=== PATIENT | male | born 1945 | race African-American/Black ===

== ENCOUNTER 2019-01-24 14:15 | Emergency (ER) | payer MEDICARE, MEDICAID ==
[~2019-01-24] VITALS: Ht 177.8 cm; Wt 73.0 kg
[~2019-01-24 14:15] MED LIST: FERR-43 PO
[2019-01-24] MEDS ORDERED: SODIUM CHLORIDE 0.9% 1,000 ML IV ONE ×2 (14:51→17:16)
[2019-01-24 16:00] VITALS: BP 147/73
[2019-01-24 16:05] LABS: BASOPHILS % 0.1 % (0.0-2.0); EOSINOPHILS % 0.3 % (0.0-5.0); HEMATOCRIT. 26.3 % (42.0-52.0); HEMOGLOBIN. 8.8 g/dL (14.0-18.0); LYMPHOCYTES % 12.9 % (20.0-50.0); MEAN CORPUSCULAR HEMOGLOBIN 29.7 pg (28.0-32.0); MEAN CORPUSCULAR VOLUME 89.2 fL (80.0-94.0); MEAN PLATELET VOLUME 7.4 fl (7.4-10.4); MONOCYTES % 11.6 % (2.0-8.0); NEUTROPHILS % 75.1 % (40.0-76.0); PLATELET 312 x1000/uL (130-400); RED BLOOD CELL COUNT 2.96 mill/uL (4.7-6.1); RED CELL DISTRIBUTION WIDTH 18.5 % (11.6-14.6)
[2019-01-24 16:12] LABS: CHLORIDE 100 mEq/L (98-107)
== END 2019-01-24 18:07 | disposition left against medical advice (07) ==
LOC: ER 14:15
DX: R55 Syncope and collapse (principal); E11.65 Type 2 diabetes mellitus with hyperglycemia
CPT/HCPCS: 36415; 71045; 80053; 83880; 84484; 85025; 93005; 96360; 96361; 99284; J7030

== ENCOUNTER 2019-02-18 09:04 | Emergency (ER) | payer MEDICARE, MEDICAID ==
[~2019-02-18] VITALS: Ht 172.7 cm; Wt 68.0 kg
[2019-02-18] MEDS ORDERED: SODIUM CHLORIDE 0.9% 1,000 ML IV ONE (09:55)
[2019-02-18] MEDS ORDERED: FAMOTIDINE 20MG/2ML VIAL IV STA (09:55)
[2019-02-18 11:09] LABS: BASOPHILS % 0.2 % (0.0-2.0); CHLORIDE 97 mEq/L (98-107); HEMATOCRIT. 24.4 % (42.0-52.0); HEMOGLOBIN. 8.2 g/dL (14.0-18.0); LYMPHOCYTES % 10.5 % (20.0-50.0); MEAN CORPUSCULAR VOLUME 86.8 fL (80.0-94.0); MEAN PLATELET VOLUME 7.1 fl (7.4-10.4); NEUTROPHILS % 80.3 % (40.0-76.0); PLATELET 250 x1000/uL (130-400); RED BLOOD CELL COUNT 2.81 mill/uL (4.7-6.1); RED CELL DISTRIBUTION WIDTH 19.6 % (11.6-14.6)
[2019-02-18 11:10] LABS: INR 1.1; PROTHROMBIN TIME 11.2 sec (9.6-11.0)
[2019-02-18 11:25] VITALS: BP 124/71
== END 2019-02-18 11:33 | disposition left against medical advice (07) ==
LOC: ER 09:04
DX: R10.9 Unspecified abdominal pain (principal); E11.9 Type 2 diabetes mellitus without complications; Z79.899 Other long term (current) drug therapy
CPT/HCPCS: 36415; 74176; 80053; 83690; 85025; 85610; 96374; 99284; J3490; J7030

== ENCOUNTER 2019-04-22 04:15 | Inpatient (IN) | payer MEDICARE, MEDICAID ==
[~2019-04-22] VITALS: Ht 172.7 cm; Wt 60.8 kg
[2019-04-22] VITALS (30 sets, daily range): BP systolic 117–165; BP diastolic 56–94
[2019-04-22] MEDS ORDERED: SODIUM CHLORIDE 0.9% 1,000 ML IV ONE (06:45)
[2019-04-22] MEDS ORDERED: MORPHINE SULFATE 4 MG/ML CPJ (NOT FOR IM USE) IV STA (06:45)
[2019-04-22] MEDS ORDERED: ONDANSETRON HCL 4MG/2ML INJ IV STA (06:45)
[2019-04-22 07:12] LABS: BASOPHILS % 0.3 % (0.0-2.0); EOSINOPHILS % 0.3 % (0.0-5.0); HEMATOCRIT. 23.3 % (42.0-52.0); HEMOGLOBIN. 7.6 g/dL (14.0-18.0); LYMPHOCYTES % 16.2 % (20.0-50.0); MEAN CORPUSCULAR HEMOGLOBIN 28.9 pg (28.0-32.0); MONOCYTES % 9.5 % (2.0-8.0); NEUTROPHILS % 73.7 % (40.0-76.0); PLATELET 250 x1000/uL (130-400); RED BLOOD CELL COUNT 2.62 mill/uL (4.7-6.1)
[2019-04-22 07:13] LABS: CLARITY URINE CLEAR (CLEAR); COLOR URINE YELLOW (YELLOW); KETONES URINE NEGATIVE (NEGATIVE); LEUKOCYTE ESTERASE URINE NEGATIVE (NEGATIVE); NITRITE URINE NEGATIVE (NEGATIVE); OCCULT BLOOD URINE NEGATIVE (NEGATIVE); PH URINE 5.5 (4.5-8.0); PROTEIN URINE 1+ (NEGATIVE)
[2019-04-22 07:16] LABS: CHLORIDE 102 mEq/L (98-107)
[2019-04-22] MEDS ORDERED: SODIUM CHLORIDE 0.9% 1,000 ML IV SCH (09:16)
[2019-04-22] MEDS ORDERED: IPRATROPIUM/ALBUTEROL 0.5-3(2.5)MG/3ML NEB HHN PRN (09:30)
[2019-04-22] MEDS ORDERED: MORPHINE SULFATE 2 MG/ML CPJ (NOT FOR IM USE) IV PRN (09:30)
[2019-04-22] MEDS ORDERED: MAGNESIUM/ALUMINUM HYDROXIDE/SIMETHICONE 30ML UDC PO PRN (09:30)
[2019-04-22] MEDS ORDERED: DOCUSATE SODIUM 100MG CAPSULE PO PRN (09:30)
[2019-04-22 09:33] LABS: PHOSPHORUS 2.9 mg/dL (2.5-4.9)
[2019-04-22] MEDS ORDERED: LORAZEPAM 2MG/ML CPJ ONE (11:08)
[2019-04-22] MEDS ORDERED: SENNOSIDES 8.6MG TABLET PO PRN (11:15)
[2019-04-22] MEDS ORDERED: BISACODYL 5MG TABLET PO PRN (11:15)
[2019-04-22] MEDS ORDERED: SORBITOL 70% SOLN 30ML PO PRN (11:15)
[2019-04-22] MEDS ORDERED: POTASSIUM CHLORIDE 20MEQ TABLET SR PO NR (15:00)
[2019-04-22] MEDS: ACETAMINOPHEN 325MG TABLET PO PRN (15:04)
[2019-04-22] MEDS ORDERED: MAGNESIUM 2 G PREMIX 50 ML IV NR (16:00)
[2019-04-22] MEDS: CLONIDINE 0.1MG TABLET PO PRN (17:56)
[2019-04-22] MEDS ORDERED: DEXTROSE 50% WATER 50ML SYRINGE IV PRN (18:15)
[2019-04-22] MEDS ORDERED: NICARDIPINE 100 MG in SODIUM CHLORIDE 0.9% 60 ML IV PRN (18:45)
[2019-04-22] MEDS: DEXT 5%/LACTATED RINGERS 1,000 ML IV SCH (19:21)
[2019-04-22] MEDS: BLOOD SUGAR DIAGNOSTIC STRIP TEST SCH (21:00)
[2019-04-22] MEDS: LEVETIRACETAM 500 MG in SODIUM CHLORIDE 0.9% 100 ML IV SCH (21:07)
[2019-04-22] MEDS: INSULIN LISPRO 100 UNITS/ML SUBCUT SCH (21:08)
[2019-04-22] MEDS: DEXAMETHASONE 4MG/ML 1ML VIAL IV SCH (23:20)
[2019-04-23] VITALS (57 sets, daily range): BP systolic 113–167; BP diastolic 30–101
[2019-04-23] MEDS: DEXAMETHASONE 4MG/ML 1ML VIAL IV SCH ×3 (05:23→17:26)
[2019-04-23 05:37] LABS: INR 1.1; PROTHROMBIN TIME 11.7 sec (9.6-11.0)
[2019-04-23 05:40] LABS: BASOPHILS % 0.1 % (0.0-2.0); LYMPHOCYTES % 9.8 % (20.0-50.0); MEAN CORPUSCULAR HEMOGLOBIN 29.1 pg (28.0-32.0); MEAN CORPUSCULAR VOLUME 89.7 fL (80.0-94.0); MEAN PLATELET VOLUME 7.4 fl (7.4-10.4); MONOCYTES % 4.5 % (2.0-8.0); NEUTROPHILS % 85.6 % (40.0-76.0); PLATELET 231 x1000/uL (130-400); RED BLOOD CELL COUNT 2.34 mill/uL (4.7-6.1); RED CELL DISTRIBUTION WIDTH 20.5 % (11.6-14.6)
[2019-04-23 05:47] LABS: CHLORIDE 102 mEq/L (98-107)
[2019-04-23 05:56] LABS: LDL CHOLESTEROL 100 mg/dL (5-100)
[2019-04-23 05:57] LABS: HEMOGLOBIN. 6.8 g/dL (14.0-18.0)
[2019-04-23 05:58] LABS: HDL CHOLESTEROL 44 mg/dL (40-59)
[2019-04-23] MEDS: BLOOD SUGAR DIAGNOSTIC STRIP TEST SCH ×4 (06:30→21:00)
[2019-04-23] MEDS: INSULIN LISPRO 100 UNITS/ML SUBCUT SCH ×4 (06:43→21:00)
[2019-04-23] MEDS: POLYETHYLENE GLYCOL 3350 (17GM) 1 DOSE PACK PO SCH (08:18)
[2019-04-23] MEDS: LEVETIRACETAM 500 MG in SODIUM CHLORIDE 0.9% 100 ML IV SCH ×2 (08:18→21:00)
[2019-04-23] MEDS: DEXT 5%/LACTATED RINGERS 1,000 ML IV SCH (11:38)
[2019-04-23 17:27] LABS: HEMATOCRIT 24.9 % (42.0-52.0); HEMOGLOBIN 8.1 g/dL (14.0-18.0)
[2019-04-23 17:38] LABS: INR 1.1; PROTHROMBIN TIME 11.7 sec (9.6-11.0)
[2019-04-24] VITALS (16 sets, daily range): BP systolic 106–166; BP diastolic 64–105
[2019-04-24] MEDS: DEXAMETHASONE 4MG/ML 1ML VIAL IV SCH ×4 (06:14→17:59)
[2019-04-24] MEDS: DEXT 5%/LACTATED RINGERS 1,000 ML IV SCH (06:15)
[2019-04-24 06:39] LABS: HEMATOCRIT. 27.5 % (42.0-52.0); HEMOGLOBIN. 9.1 g/dL (14.0-18.0); LYMPHOCYTES % 9.4 % (20.0-50.0); MEAN CORPUSCULAR HEMOGLOBIN 28.7 pg (28.0-32.0); MEAN CORPUSCULAR VOLUME 86.7 fL (80.0-94.0); MEAN PLATELET VOLUME 7.7 fl (7.4-10.4); NEUTROPHILS % 86.6 % (40.0-76.0); PLATELET 254 x1000/uL (130-400); RED BLOOD CELL COUNT 3.17 mill/uL (4.7-6.1); RED CELL DISTRIBUTION WIDTH 20.3 % (11.6-14.6)
[2019-04-24 08:00] LABS: CHLORIDE 101 mEq/L (98-107)
[2019-04-24] MEDS: BLOOD SUGAR DIAGNOSTIC STRIP TEST SCH ×4 (08:05→21:09)
[2019-04-24] MEDS: INSULIN LISPRO 100 UNITS/ML SUBCUT SCH ×4 (08:12→21:11)
[2019-04-24 09:09] LABS: ABSOLUTE LYMPHOCYTES 0.8 x10E3/uL (0.7-3.1); ABSOLUTE MONOCYTES 0.3 x10E3/uL (0.1-0.9); ABSOLUTE NEUTROPHILS 4.8 x10E3/uL (1.4-7.0); BASOPHILS 0 % (Not Estab.); HEMATOCRIT 22.1 % (37.5-51.0); HEMOGLOBIN 6.7 g/dL (13.0-17.7); IMMATURE GRANULOCYTES 1 % (Not Estab.); IMMATURE GRANULOCYTES ABSOLUTE 0.1 x10E3/uL (0.0-0.1); LYMPHOCYTES 13 % (Not Estab.); MEAN CORPUSCULAR HEMOGLOBIN 27.6 pg (26.6-33.0); MEAN CORPUSCULAR HGB CONC. 30.3 g/dL (31.5-35.7); MEAN CORPUSCULAR VOLUME 91 fL (79-97); MONOCYTES 6 % (Not Estab.); NEUTROPHILS 80 % (Not Estab.); PLATELETS 244 x10E3/uL (150-450); RBC 2.43 x10E6/uL (4.14-5.80); RED CELL DISTRIBUTION WIDTH 20.3 % (12.3-15.4)
[2019-04-24] MEDS: POLYETHYLENE GLYCOL 3350 (17GM) 1 DOSE PACK PO SCH (10:02)
[2019-04-24] MEDS: LEVETIRACETAM 500 MG in SODIUM CHLORIDE 0.9% 100 ML IV SCH ×2 (10:02→21:07)
[2019-04-24 13:07] LABS: % CD 3 POS. LYMPHOCYTES 57.9 % (57.5-86.2); % CD 4 POS. LYMPHOCYTES 19.3 % (30.8-58.5); % CD 8 POS. LYMPH 38.9 % (12.0-35.5); ABSOLUTE CD 3 463 /uL (622-2402); ABSOLUTE CD 4 HELPER 154 /uL (359-1519); ABSOLUTE CD 8 SUPPRESSOR 311 /uL (109-897)
[2019-04-24] MEDS: HYDRALAZINE 20MG/ML VIAL IV PRN (13:13)
[2019-04-24] MEDS: ONDANSETRON HCL 4MG/2ML INJ IV PRN (21:07)
[2019-04-24] MEDS: LORAZEPAM 2MG/ML CPJ IV PRN (23:18)
[2019-04-25] VITALS (13 sets, daily range): BP systolic 111–174; BP diastolic 65–99
[2019-04-25] MEDS: DEXAMETHASONE 4MG/ML 1ML VIAL IV SCH (00:25)
[2019-04-25] MEDS: LORAZEPAM 2MG/ML CPJ IV PRN ×2 (04:58→21:32)
[2019-04-25 06:05] LABS: CHLORIDE 102 mEq/L (98-107)
[2019-04-25 06:36] LABS: BASOPHILS % 0.1 % (0.0-2.0); HEMATOCRIT. 28.6 % (42.0-52.0); HEMOGLOBIN. 9.4 g/dL (14.0-18.0); LYMPHOCYTES % 10.3 % (20.0-50.0); MEAN CORPUSCULAR HEMOGLOBIN 28.8 pg (28.0-32.0); MEAN CORPUSCULAR VOLUME 87.6 fL (80.0-94.0); MONOCYTES % 4.7 % (2.0-8.0); NEUTROPHILS % 84.9 % (40.0-76.0); PLATELET 286 x1000/uL (130-400); RED BLOOD CELL COUNT 3.26 mill/uL (4.7-6.1); RED CELL DISTRIBUTION WIDTH 20.5 % (11.6-14.6)
[2019-04-25] MEDS: BLOOD SUGAR DIAGNOSTIC STRIP TEST SCH ×4 (07:30→21:35)
[2019-04-25] MEDS: INSULIN LISPRO 100 UNITS/ML SUBCUT SCH ×4 (08:00→21:00)
[2019-04-25] MEDS: POLYETHYLENE GLYCOL 3350 (17GM) 1 DOSE PACK PO SCH (09:12)
[2019-04-25] MEDS: AMLODIPINE 5MG TABLET PO SCH (09:12)
[2019-04-25] MEDS: LEVETIRACETAM 500 MG in SODIUM CHLORIDE 0.9% 100 ML IV SCH ×2 (09:13→21:32)
[2019-04-25] MEDS: SULFAMETHOXAZOLE/TRIMETHOPRIM 800/160MG TABLET PO SCH (09:13)
[2019-04-25] MEDS: ACETAMINOPHEN 325MG TABLET PO PRN (09:13)
[2019-04-25] MEDS: CLONIDINE 0.1MG TABLET PO PRN (09:31)
[2019-04-26] VITALS (15 sets, daily range): BP systolic 123–161; BP diastolic 74–93
[2019-04-26] MEDS: BLOOD SUGAR DIAGNOSTIC STRIP TEST SCH ×4 (07:00→21:41)
[2019-04-26] MEDS: INSULIN LISPRO 100 UNITS/ML SUBCUT SCH ×4 (07:44→21:00)
[2019-04-26] MEDS: LEVETIRACETAM 500 MG in SODIUM CHLORIDE 0.9% 100 ML IV SCH ×2 (09:03→21:42)
[2019-04-26] MEDS: POLYETHYLENE GLYCOL 3350 (17GM) 1 DOSE PACK PO SCH (09:03)
[2019-04-26] MEDS: AMLODIPINE 5MG TABLET PO SCH (09:04)
[2019-04-26] MEDS: SULFAMETHOXAZOLE/TRIMETHOPRIM 800/160MG TABLET PO SCH (09:04)
[2019-04-26 09:16] LABS: CHLORIDE 104 mEq/L (98-107)
[2019-04-26 09:20] LABS: ETHANOL BLOOD < 10 mg/dL
[2019-04-26 09:36] LABS: FOLIC ACID (FOLATE) SERUM 5.3 ng/mL (>5.38)
[2019-04-26 10:18] LABS: T4 FREE 1.29 ng/dL (0.76-1.46)
[2019-04-26 10:19] LABS: BASOPHILS % 0.1 % (0.0-2.0); HEMATOCRIT. 29.6 % (42.0-52.0); HEMOGLOBIN. 9.8 g/dL (14.0-18.0); LYMPHOCYTES % 9.5 % (20.0-50.0); MEAN CORPUSCULAR HEMOGLOBIN 28.7 pg (28.0-32.0); MEAN CORPUSCULAR VOLUME 86.5 fL (80.0-94.0); MONOCYTES % 8.1 % (2.0-8.0); NEUTROPHILS % 82.3 % (40.0-76.0); PLATELET 272 x1000/uL (130-400); RED BLOOD CELL COUNT 3.42 mill/uL (4.7-6.1); RED CELL DISTRIBUTION WIDTH 19.8 % (11.6-14.6)
[2019-04-26] MEDS: LORAZEPAM 2MG/ML CPJ IV PRN ×3 (10:55→21:42)
[2019-04-26] MEDS ORDERED: POTASSIUM CHLORIDE 20MEQ TABLET SR PO NR (14:30)
[2019-04-26 19:34] LABS: METHADONE URINE SCREEN NEGATIVE (NEGATIVE); OPIATES URINE SCREEN NEGATIVE (NEGATIVE)
[2019-04-26 19:35] LABS: *AMPHETAMINES SCREEN URINE NEGATIVE (NEGATIVE); *BARBITURATES SCREEN URINE NEGATIVE (NEGATIVE); *BENZODIAZEPINES SCREEN URINE NEGATIVE (NEGATIVE); *COCAINE SCREEN URINE NEGATIVE (NEGATIVE); PHENCYCLIDINE URINE SCREEN NEGATIVE (NEGATIVE)
[2019-04-26 19:37] LABS: CANNABINOID URINE SCREEN NEGATIVE (NEGATIVE)
[2019-04-27] VITALS (13 sets, daily range): BP systolic 120–166; BP diastolic 80–99
[2019-04-27 06:06] LABS: CHLORIDE 102 mEq/L (98-107)
[2019-04-27 06:09] LABS: BASOPHILS % 0.1 % (0.0-2.0); HEMATOCRIT. 28.8 % (42.0-52.0); HEMOGLOBIN. 9.5 g/dL (14.0-18.0); LYMPHOCYTES % 9.5 % (20.0-50.0); MEAN CORPUSCULAR HEMOGLOBIN 28.6 pg (28.0-32.0); MEAN CORPUSCULAR VOLUME 86.5 fL (80.0-94.0); MEAN PLATELET VOLUME 7.6 fl (7.4-10.4); MONOCYTES % 10.1 % (2.0-8.0); NEUTROPHILS % 80.3 % (40.0-76.0); PLATELET 280 x1000/uL (130-400); RED BLOOD CELL COUNT 3.33 mill/uL (4.7-6.1)
[2019-04-27] MEDS: BLOOD SUGAR DIAGNOSTIC STRIP TEST SCH ×4 (06:45→21:00)
[2019-04-27] MEDS: LEVETIRACETAM 500 MG in SODIUM CHLORIDE 0.9% 100 ML IV SCH ×2 (08:46→22:04)
[2019-04-27] MEDS: AMLODIPINE 5MG TABLET PO SCH (08:46)
[2019-04-27] MEDS: SULFAMETHOXAZOLE/TRIMETHOPRIM 800/160MG TABLET PO SCH (08:46)
[2019-04-27] MEDS: POLYETHYLENE GLYCOL 3350 (17GM) 1 DOSE PACK PO SCH (08:46)
[2019-04-27] MEDS: FOLIC ACID 1MG TABLET PO SCH (08:46)
[2019-04-27] MEDS: INSULIN LISPRO 100 UNITS/ML SUBCUT SCH ×4 (08:47→21:00)
[2019-04-27] MEDS ORDERED: POTASSIUM CHLORIDE 20MEQ TABLET SR PO ONE (09:15)
[2019-04-27] MEDS: LORAZEPAM 2MG/ML CPJ IV PRN ×2 (10:38→14:35)
[2019-04-28] VITALS (13 sets, daily range): BP systolic 116–159; BP diastolic 58–101
[2019-04-28 04:07] LABS: *HIV-1 RNA BY PCR 100 copies/mL (.)
[2019-04-28 07:29] LABS: BASOPHILS % 0.1 % (0.0-2.0); HEMATOCRIT. 26.6 % (42.0-52.0); HEMOGLOBIN. 8.9 g/dL (14.0-18.0); LYMPHOCYTES % 7.5 % (20.0-50.0); MEAN CORPUSCULAR HEMOGLOBIN 29.3 pg (28.0-32.0); MEAN CORPUSCULAR VOLUME 87.3 fL (80.0-94.0); MEAN PLATELET VOLUME 7.4 fl (7.4-10.4); MONOCYTES % 7.6 % (2.0-8.0); NEUTROPHILS % 84.8 % (40.0-76.0); PLATELET 254 x1000/uL (130-400); RED BLOOD CELL COUNT 3.05 mill/uL (4.7-6.1); RED CELL DISTRIBUTION WIDTH 20.5 % (11.6-14.6)
[2019-04-28 07:30] LABS: CHLORIDE 104 mEq/L (98-107)
[2019-04-28] MEDS: BLOOD SUGAR DIAGNOSTIC STRIP TEST SCH ×4 (07:30→20:54)
[2019-04-28] MEDS: INSULIN LISPRO 100 UNITS/ML SUBCUT SCH ×4 (08:00→21:13)
[2019-04-28] MEDS: LORAZEPAM 2MG/ML CPJ IV PRN ×2 (08:49→15:51)
[2019-04-28] MEDS: AMLODIPINE 5MG TABLET PO SCH (08:49)
[2019-04-28] MEDS: POLYETHYLENE GLYCOL 3350 (17GM) 1 DOSE PACK PO SCH (08:49)
[2019-04-28] MEDS: FOLIC ACID 1MG TABLET PO SCH (08:49)
[2019-04-28] MEDS: SULFAMETHOXAZOLE/TRIMETHOPRIM 800/160MG TABLET PO SCH (08:49)
[2019-04-28] MEDS: LEVETIRACETAM 500 MG in SODIUM CHLORIDE 0.9% 100 ML IV SCH ×2 (08:49→20:54)
[2019-04-28] MEDS ORDERED: POTASSIUM CHLORIDE 20MEQ TABLET SR PO NR (10:15)
[2019-04-28] MEDS: GUAIFENESIN 200MG/10ML SUGAR FREE UDC PO PRN (20:57)
[2019-04-29] VITALS: BP 126/80
[2019-04-29 04:00] VITALS: BP 130/85
[2019-04-29] MEDS: LORAZEPAM 2MG/ML CPJ IV PRN ×2 (05:51→21:31)
[2019-04-29] MEDS: BLOOD SUGAR DIAGNOSTIC STRIP TEST SCH ×4 (05:56→21:22)
[2019-04-29] MEDS: INSULIN LISPRO 100 UNITS/ML SUBCUT SCH ×4 (06:35→21:38)
[2019-04-29 08:00] VITALS: BP 135/83
[2019-04-29] MEDS: POLYETHYLENE GLYCOL 3350 (17GM) 1 DOSE PACK PO SCH (09:11)
[2019-04-29] MEDS: LEVETIRACETAM 500 MG in SODIUM CHLORIDE 0.9% 100 ML IV SCH ×2 (09:11→21:31)
[2019-04-29] MEDS: AMLODIPINE 5MG TABLET PO SCH (09:12)
[2019-04-29] MEDS: FOLIC ACID 1MG TABLET PO SCH (09:12)
[2019-04-29] MEDS: SULFAMETHOXAZOLE/TRIMETHOPRIM 800/160MG TABLET PO SCH (09:12)
[2019-04-29 12:00] VITALS: BP 125/74
[2019-04-29 16:00] VITALS: BP 139/88
[2019-04-29 20:00] VITALS: BP 138/84
[2019-04-30] VITALS: BP 144/92
[2019-04-30 04:00] VITALS: BP 145/81
[2019-04-30] MEDS: INSULIN LISPRO 100 UNITS/ML SUBCUT SCH ×4 (06:15→21:00)
[2019-04-30] MEDS: BLOOD SUGAR DIAGNOSTIC STRIP TEST SCH ×4 (06:15→21:00)
[2019-04-30 07:39] LABS: BASOPHILS % 0.3 % (0.0-2.0); EOSINOPHILS % 0.6 % (0.0-5.0); HEMATOCRIT. 29.7 % (42.0-52.0); HEMOGLOBIN. 9.5 g/dL (14.0-18.0); LYMPHOCYTES % 15.4 % (20.0-50.0); MEAN CORPUSCULAR HEMOGLOBIN 28.2 pg (28.0-32.0); MEAN CORPUSCULAR VOLUME 88.1 fL (80.0-94.0); MEAN PLATELET VOLUME 7.5 fl (7.4-10.4); MONOCYTES % 7.8 % (2.0-8.0); NEUTROPHILS % 75.9 % (40.0-76.0); PLATELET 295 x1000/uL (130-400); RED BLOOD CELL COUNT 3.37 mill/uL (4.7-6.1); RED CELL DISTRIBUTION WIDTH 20.2 % (11.6-14.6)
[2019-04-30 07:46] LABS: CHLORIDE 105 mEq/L (98-107)
[2019-04-30 08:00] VITALS: BP_SYST 131; BP_SYST 150; BP_DIAS 86
[2019-04-30] MEDS: LEVETIRACETAM 500 MG in SODIUM CHLORIDE 0.9% 100 ML IV SCH ×2 (09:15→21:19)
[2019-04-30] MEDS: FOLIC ACID 1MG TABLET PO SCH (09:15)
[2019-04-30] MEDS: SULFAMETHOXAZOLE/TRIMETHOPRIM 800/160MG TABLET PO SCH (09:15)
[2019-04-30] MEDS: AMLODIPINE 5MG TABLET PO SCH (09:15)
[2019-04-30] MEDS: BICALUTAMIDE 50 MG TABLET PO SCH (09:15)
[2019-04-30] MEDS: POLYETHYLENE GLYCOL 3350 (17GM) 1 DOSE PACK PO SCH (09:15)
[2019-04-30 12:00] VITALS: BP 144/96
[2019-04-30] MEDS ORDERED: MAGNESIUM 2 G PREMIX 50 ML IV SCH (13:00)
[2019-04-30 16:00] VITALS: BP 136/75
[2019-04-30 20:00] VITALS: BP 133/87
[2019-05-01] VITALS (57 sets, daily range): BP systolic 97–174; BP diastolic 52–113
[2019-05-01] MEDS: BLOOD SUGAR DIAGNOSTIC STRIP TEST SCH ×3 (06:11→20:49)
[2019-05-01] MEDS: INSULIN LISPRO 100 UNITS/ML SUBCUT SCH ×4 (06:11→20:50)
[2019-05-01] MEDS: POLYETHYLENE GLYCOL 3350 (17GM) 1 DOSE PACK PO SCH (08:50)
[2019-05-01] MEDS: BICALUTAMIDE 50 MG TABLET PO SCH (08:50)
[2019-05-01] MEDS: FOLIC ACID 1MG TABLET PO SCH (08:50)
[2019-05-01] MEDS: AMLODIPINE 5MG TABLET PO SCH (08:50)
[2019-05-01] MEDS: SULFAMETHOXAZOLE/TRIMETHOPRIM 800/160MG TABLET PO SCH (08:50)
[2019-05-01] MEDS: LEVETIRACETAM 500 MG in SODIUM CHLORIDE 0.9% 100 ML IV SCH ×2 (09:00→20:40)
[2019-05-01] MEDS ORDERED: BACITRACIN 15GM TUBE TOP ONE (09:17)
[2019-05-01] MEDS ORDERED: THROMBIN (BOVINE) 5000 UNITS/VIAL TOP ONE (09:17)
[2019-05-01] MEDS ORDERED: NORMAL SALINE 0.9% 10 ML SYR ONE (09:17)
[2019-05-01] MEDS ORDERED: LACTATED RINGERS 4,000 ML IV ONE (09:18)
[2019-05-01] MEDS ORDERED: BACITRACIN 50,000 UNITS/VIAL ONE (09:18)
[2019-05-01] MEDS ORDERED: LIDOCAINE HCL/EPINEPHRINE 1%-EPI 1:100,000 20 ML VIAL ONE (09:18)
[2019-05-01] MEDS ORDERED: PROPOFOL 200MG/20ML VIAL IV ONE (10:10)
[2019-05-01] MEDS ORDERED: MIDAZOLAM HCL 2 MG/2 ML VIAL ONE (10:10)
[2019-05-01] MEDS ORDERED: NEOSTIGMINE METHYLSULFATE 1MG/ML 10 ML VIAL ONE (10:10)
[2019-05-01] MEDS ORDERED: ROCURONIUM BROMIDE 10MG/ML VIAL 5ML IV ONE (10:10)
[2019-05-01] MEDS ORDERED: FENTANYL CITRATE/PF 50MCG/ML 2ML VIAL ONE (10:10)
[2019-05-01] MEDS ORDERED: GLYCOPYRROLATE 0.2 MG/ML 2ML VIAL ONE (10:11)
[2019-05-01] MEDS ORDERED: DEXAMETHASONE 4MG/ML 1ML VIAL ONE (10:49)
[2019-05-01] MEDS ORDERED: ONDANSETRON HCL 4MG/2ML INJ ONE (10:49)
[2019-05-01] MEDS: NICARDIPINE 100 MG in SODIUM CHLORIDE 0.9% 60 ML IV PRN (11:42)
[2019-05-01] MEDS: HYDRALAZINE 20MG/ML VIAL IV PRN (11:55)
[2019-05-01 12:40] LABS: BG BASE EXCESS -0.1 mmol/L (-2.0-2.0); BG CARBOXYHEMOGLOBIN 0.1 % (0.5-1.5); BG DEOXYHEMOGLOBIN 0.2 % (0.0-5.0); BG HCO3 ACT 22.2 mmol/L (22.0-26.0); BG METHEMOGLOBIN 0.4 % (0.0-1.5); BG OXYGEN SATURATION 99.8 % (92.0-98.5); BG OXYHEMOGLOBIN 99.3 % (94.0-97.0); BG PCO2 28.9 mmHg (35.0-45.0); BG PH 7.503 (7.350-7.450); BG PO2 600.6 mmHg (75.0-100.0); BG SAMPLE SITE RIGHT RADIAL; BG TIDAL VOLUME(mL) 500 mL; BG TOTAL HEMOGLOBIN 11.3 g/dL (12.0-18.0); BG VENT MODE VENT - A/C; BG VENT RATE 10 set
[2019-05-01] MEDS ORDERED: CEFAZOLIN SODIUM 1000MG/VIAL IV SCH (14:00)
[2019-05-01] MEDS ORDERED: CEFAZOLIN 1000MG PREMIX 50 ML IV SCH (14:00)
[2019-05-01 14:16] LABS: BG CARBOXYHEMOGLOBIN 0.3 % (0.5-1.5); BG CPAP (cmH2O) 0 cm(H2O); BG DEOXYHEMOGLOBIN 0.9 % (0.0-5.0); BG HCO3 ACT 18.9 mmol/L (22.0-26.0); BG METHEMOGLOBIN 0.2 % (0.0-1.5); BG OXYGEN SATURATION 99.1 % (92.0-98.5); BG OXYHEMOGLOBIN 98.6 % (94.0-97.0); BG PCO2 21.5 mmHg (35.0-45.0); BG PH 7.562 (7.350-7.450); BG PO2 196.8 mmHg (75.0-100.0); BG SAMPLE SITE RIGHT RADIAL; BG TOTAL HEMOGLOBIN 10.1 g/dL (12.0-18.0); BG VENT MODE VENT - CPAP
[2019-05-01] MEDS: MORPHINE SULFATE 2 MG/ML CPJ (NOT FOR IM USE) IV PRN ×3 (14:51→19:34)
[2019-05-01] MEDS: CEFAZOLIN 1000MG PREMIX 50 ML IV SCH (16:15)
[2019-05-01] MEDS: DEXT 5%/LACTATED RINGERS 1,000 ML IV SCH (16:16)
[2019-05-02] VITALS (98 sets, daily range): BP systolic 104–174; BP diastolic 59–102
[2019-05-02] MEDS: CEFAZOLIN 1000MG PREMIX 50 ML IV SCH ×2 (00:12→07:29)
[2019-05-02] MEDS: DEXT 5%/LACTATED RINGERS 1,000 ML IV SCH (05:11)
[2019-05-02] MEDS: BLOOD SUGAR DIAGNOSTIC STRIP TEST SCH ×4 (06:13→21:00)
[2019-05-02] MEDS: INSULIN LISPRO 100 UNITS/ML SUBCUT SCH ×4 (06:14→21:00)
[2019-05-02] MEDS: MORPHINE SULFATE 2 MG/ML CPJ (NOT FOR IM USE) IV PRN ×6 (07:30→23:26)
[2019-05-02] MEDS: SULFAMETHOXAZOLE/TRIMETHOPRIM 800/160MG TABLET PO SCH ×2 (09:00→14:41)
[2019-05-02] MEDS: LEVETIRACETAM 500 MG in SODIUM CHLORIDE 0.9% 100 ML IV SCH ×2 (10:22→20:49)
[2019-05-02] MEDS: PANTOPRAZOLE SODIUM 40 MG/VIAL IV SCH (11:13)
[2019-05-02] MEDS: AMLODIPINE 5MG TABLET PO SCH (11:13)
[2019-05-02] MEDS: POLYETHYLENE GLYCOL 3350 (17GM) 1 DOSE PACK PO SCH (11:14)
[2019-05-02] MEDS: BICALUTAMIDE 50 MG TABLET PO SCH (11:14)
[2019-05-02] MEDS: FOLIC ACID 1MG TABLET PO SCH (11:14)
[2019-05-03] VITALS (92 sets, daily range): BP systolic 100–172; BP diastolic 51–109
[2019-05-03] MEDS: MORPHINE SULFATE 2 MG/ML CPJ (NOT FOR IM USE) IV PRN ×5 (04:08→22:07)
[2019-05-03 05:42] LABS: BASOPHILS % 0.2 % (0.0-2.0); EOSINOPHILS % 0.1 % (0.0-5.0); HEMATOCRIT. 24.9 % (42.0-52.0); HEMOGLOBIN. 8.1 g/dL (14.0-18.0); LYMPHOCYTES % 13.6 % (20.0-50.0); MEAN CORPUSCULAR HEMOGLOBIN 28.6 pg (28.0-32.0); MEAN CORPUSCULAR VOLUME 88.2 fL (80.0-94.0); MONOCYTES % 9.4 % (2.0-8.0); NEUTROPHILS % 76.7 % (40.0-76.0); RED BLOOD CELL COUNT 2.82 mill/uL (4.7-6.1); RED CELL DISTRIBUTION WIDTH 19.7 % (11.6-14.6)
[2019-05-03 05:50] LABS: CHLORIDE 106 mEq/L (98-107)
[2019-05-03] MEDS: BLOOD SUGAR DIAGNOSTIC STRIP TEST SCH ×4 (06:31→21:25)
[2019-05-03] MEDS: INSULIN LISPRO 100 UNITS/ML SUBCUT SCH ×3 (06:32→21:00)
[2019-05-03 06:54] LABS: PLATELET 235 x1000/uL (130-400)
[2019-05-03] MEDS: LEVETIRACETAM 500 MG in SODIUM CHLORIDE 0.9% 100 ML IV SCH ×2 (08:45→21:17)
[2019-05-03] MEDS: PANTOPRAZOLE SODIUM 40 MG/VIAL IV SCH (08:45)
[2019-05-03] MEDS: SULFAMETHOXAZOLE/TRIMETHOPRIM 800/160MG TABLET PO SCH (08:46)
[2019-05-03] MEDS: AMLODIPINE 5MG TABLET PO SCH (08:46)
[2019-05-03] MEDS: BICALUTAMIDE 50 MG TABLET PO SCH (08:46)
[2019-05-03] MEDS: FOLIC ACID 1MG TABLET PO SCH (08:46)
[2019-05-03] MEDS: DEXT 5%/LACTATED RINGERS 1,000 ML IV SCH ×2 (08:47→21:18)
[2019-05-03] MEDS: POLYETHYLENE GLYCOL 3350 (17GM) 1 DOSE PACK PO SCH (09:04)
[2019-05-03 19:09] LABS: 25-HYDROXY VITAMIN D3 13 ng/mL (.)
[2019-05-03] MEDS: ONDANSETRON HCL 4MG/2ML INJ IV PRN (22:07)
[2019-05-04] VITALS (61 sets, daily range): BP systolic 104–153; BP diastolic 58–102
[2019-05-04] MEDS: NICARDIPINE 100 MG in SODIUM CHLORIDE 0.9% 60 ML IV PRN (05:44)
[2019-05-04] MEDS: BLOOD SUGAR DIAGNOSTIC STRIP TEST SCH ×4 (05:52→20:47)
[2019-05-04 06:07] LABS: BASOPHILS % 0.2 % (0.0-2.0); EOSINOPHILS % 0.1 % (0.0-5.0); HEMATOCRIT. 28.5 % (42.0-52.0); HEMOGLOBIN. 9.1 g/dL (14.0-18.0); LYMPHOCYTES % 13.9 % (20.0-50.0); MEAN CORPUSCULAR HEMOGLOBIN 28.6 pg (28.0-32.0); MEAN CORPUSCULAR VOLUME 89.2 fL (80.0-94.0); MEAN PLATELET VOLUME 7.2 fl (7.4-10.4); MONOCYTES % 11.8 % (2.0-8.0); PLATELET 227 x1000/uL (130-400); RED CELL DISTRIBUTION WIDTH 20.5 % (11.6-14.6)
[2019-05-04 06:17] LABS: CHLORIDE 103 mEq/L (98-107)
[2019-05-04] MEDS: INSULIN LISPRO 100 UNITS/ML SUBCUT SCH ×4 (06:43→20:49)
[2019-05-04] MEDS: PANTOPRAZOLE SODIUM 40 MG/VIAL IV SCH (08:19)
[2019-05-04] MEDS: SULFAMETHOXAZOLE/TRIMETHOPRIM 800/160MG TABLET PO SCH (08:20)
[2019-05-04] MEDS: FOLIC ACID 1MG TABLET PO SCH (08:20)
[2019-05-04] MEDS: POLYETHYLENE GLYCOL 3350 (17GM) 1 DOSE PACK PO SCH (08:20)
[2019-05-04] MEDS: LEVETIRACETAM 500 MG in SODIUM CHLORIDE 0.9% 100 ML IV SCH ×2 (08:20→20:48)
[2019-05-04] MEDS: AMLODIPINE 5MG TABLET PO SCH (08:20)
[2019-05-04] MEDS: BICALUTAMIDE 50 MG TABLET PO SCH (08:21)
[2019-05-04] MEDS: DEXT 5%/LACTATED RINGERS 1,000 ML IV SCH ×2 (09:59→20:49)
[2019-05-04] MEDS ORDERED: POTASSIUM CHLORIDE 20MEQ/PACKET PO NR (11:00)
[2019-05-04] MEDS: MORPHINE SULFATE 2 MG/ML CPJ (NOT FOR IM USE) IV PRN ×2 (14:56→21:21)
[2019-05-04] MEDS: ONDANSETRON HCL 4MG/2ML INJ IV PRN (21:21)
[2019-05-04] MEDS: GUAIFENESIN 200MG/10ML SUGAR FREE UDC PO PRN (23:55)
[2019-05-05] VITALS (96 sets, daily range): BP systolic 99–145; BP diastolic 40–112
[2019-05-05 05:04] LABS: BASOPHILS % 0.3 % (0.0-2.0); EOSINOPHILS % 0.1 % (0.0-5.0); HEMATOCRIT. 25.9 % (42.0-52.0); HEMOGLOBIN. 8.4 g/dL (14.0-18.0); LYMPHOCYTES % 12.1 % (20.0-50.0); MEAN CORPUSCULAR HEMOGLOBIN 28.4 pg (28.0-32.0); MEAN CORPUSCULAR VOLUME 87.8 fL (80.0-94.0); MEAN PLATELET VOLUME 7.1 fl (7.4-10.4); MONOCYTES % 11.3 % (2.0-8.0); NEUTROPHILS % 76.2 % (40.0-76.0); PLATELET 207 x1000/uL (130-400); RED BLOOD CELL COUNT 2.95 mill/uL (4.7-6.1); RED CELL DISTRIBUTION WIDTH 20.2 % (11.6-14.6)
[2019-05-05 05:12] LABS: CHLORIDE 103 mEq/L (98-107)
[2019-05-05] MEDS: BLOOD SUGAR DIAGNOSTIC STRIP TEST SCH ×4 (07:02→21:06)
[2019-05-05] MEDS: INSULIN LISPRO 100 UNITS/ML SUBCUT SCH ×4 (07:03→21:00)
[2019-05-05] MEDS: PANTOPRAZOLE SODIUM 40 MG/VIAL IV SCH (08:07)
[2019-05-05] MEDS: SULFAMETHOXAZOLE/TRIMETHOPRIM 800/160MG TABLET PO SCH (08:07)
[2019-05-05] MEDS: FOLIC ACID 1MG TABLET PO SCH (08:07)
[2019-05-05] MEDS: AMLODIPINE 5MG TABLET PO SCH (08:07)
[2019-05-05] MEDS: LEVETIRACETAM 500 MG in SODIUM CHLORIDE 0.9% 100 ML IV SCH ×2 (08:07→21:06)
[2019-05-05] MEDS: BICALUTAMIDE 50 MG TABLET PO SCH (08:07)
[2019-05-05] MEDS: POLYETHYLENE GLYCOL 3350 (17GM) 1 DOSE PACK PO SCH (08:07)
[2019-05-05] MEDS ORDERED: POTASSIUM CHLORIDE 20MEQ TABLET SR PO SCH (10:15)
[2019-05-05] MEDS ORDERED: ERGOCALCIFEROL 50000UNITS CAPSULE PO SCH (14:00)
[2019-05-05] MEDS: DEXT 5%/LACTATED RINGERS 1,000 ML IV SCH (18:37)
[2019-05-06] VITALS (53 sets, daily range): BP systolic 83–143; BP diastolic 43–98
[2019-05-06 05:22] LABS: BASOPHILS % 0.2 % (0.0-2.0); EOSINOPHILS % 0.3 % (0.0-5.0); HEMOGLOBIN. 8.2 g/dL (14.0-18.0); LYMPHOCYTES % 13.7 % (20.0-50.0); MEAN CORPUSCULAR HEMOGLOBIN 28.7 pg (28.0-32.0); MEAN PLATELET VOLUME 7.2 fl (7.4-10.4); MONOCYTES % 8.7 % (2.0-8.0); NEUTROPHILS % 77.1 % (40.0-76.0); PLATELET 219 x1000/uL (130-400); RED BLOOD CELL COUNT 2.85 mill/uL (4.7-6.1); RED CELL DISTRIBUTION WIDTH 19.6 % (11.6-14.6)
[2019-05-06 05:29] LABS: CHLORIDE 102 mEq/L (98-107)
[2019-05-06] MEDS: BLOOD SUGAR DIAGNOSTIC STRIP TEST SCH ×4 (05:42→20:17)
[2019-05-06] MEDS: INSULIN LISPRO 100 UNITS/ML SUBCUT SCH ×4 (05:46→21:58)
[2019-05-06] MEDS: FOLIC ACID 1MG TABLET PO SCH (08:04)
[2019-05-06] MEDS: SULFAMETHOXAZOLE/TRIMETHOPRIM 800/160MG TABLET PO SCH (08:04)
[2019-05-06] MEDS: PANTOPRAZOLE SODIUM 40 MG/VIAL IV SCH (08:04)
[2019-05-06] MEDS: POLYETHYLENE GLYCOL 3350 (17GM) 1 DOSE PACK PO SCH (08:05)
[2019-05-06] MEDS: BICALUTAMIDE 50 MG TABLET PO SCH (08:06)
[2019-05-06] MEDS: LEVETIRACETAM 500 MG in SODIUM CHLORIDE 0.9% 100 ML IV SCH ×2 (08:06→21:17)
[2019-05-06] MEDS: AMLODIPINE 5MG TABLET PO SCH (08:07)
[2019-05-06] MEDS ORDERED: POTASSIUM CHLORIDE 20MEQ TABLET SR PO NR (10:00)
[2019-05-06] MEDS: RISPERIDONE 1MG TABLET PO SCH (10:35)
[2019-05-06] MEDS ORDERED: MORPHINE SULFATE 2 MG/ML CPJ (NOT FOR IM USE) IV PRN (15:00)
[2019-05-07 00:15] VITALS: BP 135/82
[2019-05-07 05:34] VITALS: BP 113/71
[2019-05-07 07:24] LABS: BASOPHILS % 0.2 % (0.0-2.0); EOSINOPHILS % 0.4 % (0.0-5.0); HEMATOCRIT. 26.9 % (42.0-52.0); HEMOGLOBIN. 8.7 g/dL (14.0-18.0); LYMPHOCYTES % 9.2 % (20.0-50.0); MEAN CORPUSCULAR HEMOGLOBIN 28.5 pg (28.0-32.0); MEAN CORPUSCULAR VOLUME 88.5 fL (80.0-94.0); MEAN PLATELET VOLUME 7.6 fl (7.4-10.4); MONOCYTES % 8.6 % (2.0-8.0); NEUTROPHILS % 81.6 % (40.0-76.0); PLATELET 246 x1000/uL (130-400); RED BLOOD CELL COUNT 3.04 mill/uL (4.7-6.1); RED CELL DISTRIBUTION WIDTH 19.6 % (11.6-14.6)
[2019-05-07 07:34] LABS: CHLORIDE 102 mEq/L (98-107)
[2019-05-07 08:00] VITALS: BP 121/78
[2019-05-07] MEDS: RISPERIDONE 1MG TABLET PO SCH (08:57)
[2019-05-07] MEDS: FOLIC ACID 1MG TABLET PO SCH (08:58)
[2019-05-07] MEDS: AMLODIPINE 5MG TABLET PO SCH (08:58)
[2019-05-07] MEDS: POLYETHYLENE GLYCOL 3350 (17GM) 1 DOSE PACK PO SCH (08:58)
[2019-05-07] MEDS: PANTOPRAZOLE SODIUM 40 MG/VIAL IV SCH (09:04)
[2019-05-07] MEDS: BICALUTAMIDE 50 MG TABLET PO SCH (09:12)
[2019-05-07] MEDS: LEVETIRACETAM 500 MG in SODIUM CHLORIDE 0.9% 100 ML IV SCH (09:12)
[2019-05-07] MEDS: INSULIN LISPRO 100 UNITS/ML SUBCUT SCH ×4 (09:18→22:15)
[2019-05-07] MEDS: SULFAMETHOXAZOLE/TRIMETHOPRIM 800/160MG TABLET PO SCH (09:54)
[2019-05-07] MEDS: LEVETIRACETAM 500MG/5ML CUP PO SCH ×2 (11:27→22:03)
[2019-05-07 12:00] VITALS: BP_SYST 100; BP_SYST 117; BP_DIAS 58; BP_DIAS 68
[2019-05-07] MEDS: BLOOD SUGAR DIAGNOSTIC STRIP TEST SCH ×3 (13:09→21:00)
[2019-05-07 16:00] VITALS: BP 117/68
[2019-05-07] MEDS ORDERED: HYDRALAZINE 10 MG in DEXTROSE 5% WATER 50 ML IV PRN (17:00)
[2019-05-07 20:00] VITALS: BP 105/69
[2019-05-08] VITALS: BP 116/79
[2019-05-08 04:00] VITALS: BP 108/70
[2019-05-08] MEDS: BLOOD SUGAR DIAGNOSTIC STRIP TEST SCH ×4 (06:54→21:21)
[2019-05-08 08:00] VITALS: BP 119/78
[2019-05-08] MEDS: INSULIN LISPRO 100 UNITS/ML SUBCUT SCH ×4 (08:01→21:35)
[2019-05-08] MEDS ORDERED: AZITHROMYCIN 600 MG TABLET PO SCH (09:00)
[2019-05-08] MEDS: FOLIC ACID 1MG TABLET PO SCH (09:14)
[2019-05-08] MEDS: AMLODIPINE 5MG TABLET PO SCH (09:15)
[2019-05-08] MEDS: POLYETHYLENE GLYCOL 3350 (17GM) 1 DOSE PACK PO SCH (09:15)
[2019-05-08] MEDS: LEVETIRACETAM 500MG/5ML CUP PO SCH ×2 (09:15→21:20)
[2019-05-08] MEDS: FAMOTIDINE 20MG TABLET PO SCH ×2 (09:25→21:21)
[2019-05-08] MEDS: SULFAMETHOXAZOLE/TRIMETHOPRIM 800/160MG TABLET PO SCH (09:25)
[2019-05-08] MEDS: RISPERIDONE 1MG TABLET PO SCH (09:25)
[2019-05-08] MEDS: BICALUTAMIDE 50 MG TABLET PO SCH (11:04)
[2019-05-08 12:00] VITALS: BP 103/60
[2019-05-08 16:00] VITALS: BP 101/63
[2019-05-08 20:00] VITALS: BP 112/77
[2019-05-09] VITALS: BP 116/78
[2019-05-09 04:00] VITALS: BP 113/73
[2019-05-09] MEDS: BLOOD SUGAR DIAGNOSTIC STRIP TEST SCH ×4 (06:17→20:13)
[2019-05-09 08:00] VITALS: BP 111/67
[2019-05-09] MEDS: SULFAMETHOXAZOLE/TRIMETHOPRIM 800/160MG TABLET PO SCH (08:35)
[2019-05-09] MEDS: BICALUTAMIDE 50 MG TABLET PO SCH (08:36)
[2019-05-09] MEDS: FOLIC ACID 1MG TABLET PO SCH (08:36)
[2019-05-09] MEDS: LEVETIRACETAM 500MG/5ML CUP PO SCH ×2 (08:36→20:13)
[2019-05-09] MEDS: POLYETHYLENE GLYCOL 3350 (17GM) 1 DOSE PACK PO SCH (08:36)
[2019-05-09] MEDS: AMLODIPINE 5MG TABLET PO SCH (08:36)
[2019-05-09] MEDS: FAMOTIDINE 20MG TABLET PO SCH ×2 (08:36→20:12)
[2019-05-09] MEDS: RISPERIDONE 1MG TABLET PO SCH (08:36)
[2019-05-09] MEDS: INSULIN LISPRO 100 UNITS/ML SUBCUT SCH ×4 (08:40→20:20)
[2019-05-09] MEDS: INSULIN GLARGINE UD 100 UNITS/ML SYR SUBCUT SCH (11:40)
[2019-05-09 12:17] VITALS: BP 115/76
[2019-05-09] MEDS ORDERED: LORAZEPAM 2MG/ML CPJ IV PRN (15:45)
[2019-05-09 16:00] VITALS: BP 98/66
[2019-05-09] MEDS: LORAZEPAM 1MG TABLET PO PRN (16:15)
[2019-05-09] MEDS: SULFAMETHOXAZOLE/TRIMETHOPRIM 400/80MG TAB PO SCH (17:07)
[2019-05-09 20:00] VITALS: BP 114/74
[2019-05-10] VITALS: BP 125/82
[2019-05-10 04:00] VITALS: BP 106/64
[2019-05-10] MEDS: BLOOD SUGAR DIAGNOSTIC STRIP TEST SCH ×4 (06:28→20:23)
[2019-05-10] MEDS: INSULIN LISPRO 100 UNITS/ML SUBCUT SCH ×4 (06:28→21:37)
[2019-05-10 08:00] VITALS: BP 116/74
[2019-05-10] MEDS: POLYETHYLENE GLYCOL 3350 (17GM) 1 DOSE PACK PO SCH (09:00)
[2019-05-10] MEDS: AMLODIPINE 5MG TABLET PO SCH (09:00)
[2019-05-10] MEDS: INSULIN GLARGINE UD 100 UNITS/ML SYR SUBCUT SCH (10:00)
[2019-05-10] MEDS: LORAZEPAM 1MG TABLET PO PRN (10:34)
[2019-05-10] MEDS: LEVETIRACETAM 500MG/5ML CUP PO SCH ×2 (10:34→20:23)
[2019-05-10] MEDS: FOLIC ACID 1MG TABLET PO SCH (10:34)
[2019-05-10] MEDS: RISPERIDONE 1MG TABLET PO SCH (10:34)
[2019-05-10] MEDS: FAMOTIDINE 20MG TABLET PO SCH ×2 (10:34→20:23)
[2019-05-10] MEDS: SULFAMETHOXAZOLE/TRIMETHOPRIM 400/80MG TAB PO SCH (10:34)
[2019-05-10 12:00] VITALS: BP 106/72
[2019-05-10 16:00] VITALS: BP 119/79
[2019-05-10] MEDS: BICALUTAMIDE 50 MG TABLET PO SCH (17:37)
[2019-05-10 20:00] VITALS: BP 121/82
[2019-05-11] VITALS (8 sets, daily range): BP systolic 108–135; BP diastolic 60–85
[2019-05-11] MEDS: BLOOD SUGAR DIAGNOSTIC STRIP TEST SCH ×4 (06:30→20:50)
[2019-05-11] MEDS: INSULIN LISPRO 100 UNITS/ML SUBCUT SCH ×4 (06:30→20:50)
[2019-05-11] MEDS: FAMOTIDINE 20MG TABLET PO SCH ×2 (08:32→20:50)
[2019-05-11] MEDS: SULFAMETHOXAZOLE/TRIMETHOPRIM 400/80MG TAB PO SCH (08:32)
[2019-05-11] MEDS: RISPERIDONE 1MG TABLET PO SCH (08:32)
[2019-05-11] MEDS: LEVETIRACETAM 500MG/5ML CUP PO SCH ×2 (08:32→20:50)
[2019-05-11] MEDS: FOLIC ACID 1MG TABLET PO SCH (08:32)
[2019-05-11] MEDS: AMLODIPINE 5MG TABLET PO SCH (08:32)
[2019-05-11] MEDS: BICALUTAMIDE 50 MG TABLET PO SCH (08:33)
[2019-05-11] MEDS: POLYETHYLENE GLYCOL 3350 (17GM) 1 DOSE PACK PO SCH (08:33)
[2019-05-11] MEDS: INSULIN GLARGINE UD 100 UNITS/ML SYR SUBCUT SCH (10:28)
== END 2019-05-11 21:05 | DRG 25 ==
LOC: ER 04:15 → 6EST 08:56 → EDBEDREQ 08:57 → CANRESERV 10:24 → ENRESERV 10:24 → EDBEDREQSVC 11:20 → ENRESERV 13:26 → MICUSO 17:36 → 5EST 04-24 03:02 → 8WST 04-28 23:19 → MICUNO 05-01 11:30 → MICUSO 05-04 10:46 → 6EST 05-06 14:20
PROVIDERS: ADMIT Internal Medicine; ATTEND Internal Medicine
PROC: 30233N1 Transfusion of Nonautologous Red Blood Cells into Peripheral Vein, Percutaneous Approach (ICD-10-PCS; 2019-04-23)
PROC: 0NU10JZ Supplement Frontal Bone with Synthetic Substitute, Open Approach (ICD-10-PCS; 2019-04-23)
PROC: 00C40ZZ Extirpation of Matter from Intracranial Subdural Space, Open Approach (ICD-10-PCS; principal; 2019-05-02)
PROC: 00H032Z Insertion of Monitoring Device into Brain, Percutaneous Approach (ICD-10-PCS; 2019-05-02)
PROC: 00U207Z Supplement Dura Mater with Autologous Tissue Substitute, Open Approach (ICD-10-PCS; 2019-05-02)
PROC: 4A103BD Monitoring of Intracranial Pressure, Percutaneous Approach (ICD-10-PCS; 2019-05-02)
DX: I62.02 Nontraumatic subacute subdural hemorrhage (principal); G93.41 Metabolic encephalopathy; B20 Human immunodeficiency virus [HIV] disease; C79.51 Secondary malignant neoplasm of bone; E46 Unspecified protein-calorie malnutrition; K59.00 Constipation, unspecified; K80.20 Calculus of gallbladder without cholecystitis without obstruction; D50.9 Iron deficiency anemia, unspecified; E11.22 Type 2 diabetes mellitus with diabetic chronic kidney disease; I12.9 Hypertensive chronic kidney disease with stage 1 through stage 4 chronic kidney disease, or unspecified chronic kidney disease; E83.42 Hypomagnesemia; K29.70 Gastritis, unspecified, without bleeding; N18.9 Chronic kidney disease, unspecified; K57.90 Diverticulosis of intestine, part unspecified, without perforation or abscess without bleeding; K64.9 Unspecified hemorrhoids; C61 Malignant neoplasm of prostate; D63.8 Anemia in other chronic diseases classified elsewhere; E11.65 Type 2 diabetes mellitus with hyperglycemia; F14.10 Cocaine abuse, uncomplicated; N20.0 Calculus of kidney; R74.0 Nonspecific elevation of levels of transaminase and lactic acid dehydrogenase [LDH]; E11.319 Type 2 diabetes mellitus with unspecified diabetic retinopathy without macular edema; E55.9 Vitamin D deficiency, unspecified; E27.8 Other specified disorders of adrenal gland; E78.5 Hyperlipidemia, unspecified; F03.90 Unspecified dementia, unspecified severity, without behavioral disturbance, psychotic disturbance, mood disturbance, and anxiety; Z66 Do not resuscitate; K59.09 Other constipation; K52.9 Noninfective gastroenteritis and colitis, unspecified; J44.9 Chronic obstructive pulmonary disease, unspecified; K21.9 Gastro-esophageal reflux disease without esophagitis; M10.9 Gout, unspecified; I25.10 Atherosclerotic heart disease of native coronary artery without angina pectoris; R26.9 Unspecified abnormalities of gait and mobility; R29.810 Facial weakness; R47.01 Aphasia; K40.20 Bilateral inguinal hernia, without obstruction or gangrene, not specified as recurrent; R13.10 Dysphagia, unspecified; F32.9 Major depressive disorder, single episode, unspecified; Z86.73 Personal history of transient ischemic attack (TIA), and cerebral infarction without residual deficits; Z85.46 Personal history of malignant neoplasm of prostate; Z91.19 Patient's noncompliance with other medical treatment and regimen; Z78.1 Physical restraint status; Z86.19 Personal history of other infectious and parasitic diseases; Z68.20 Body mass index [BMI] 20.0-20.9, adult; Z88.8 Allergy status to other drugs, medicaments and biological substances; Z79.899 Other long term (current) drug therapy; Z87.891 Personal history of nicotine dependence
CPT/HCPCS: 36415; 36600; 70544; 70553; 71045; 74176; 76700; 80048; 80061; 80305; 80320; 81003; 82140; 82270; 82306; 82375; 82607; 82746; 82805; 82962; 83036; 83735; 84100; 84132; 84134; 84153; 84403; 84439; 84443; 84481; 84484; 85014; 85018; 85049; 85384; 86359; 86360; 86850; 86900; 86920; 87536; 88305; 92523; 92610; 93005; 93970; 94002; 96361; 96374; 96375; 97110; 97116; 97162; 97164; 97166; 97168; 97530; 97535; 99285; C1713; C1893; C9113; J0360; J0690; J1100; J1815; J1953; J2060; J2250; J2270; J2405; J2704; J2710; J3010; J3475; J3490; J7030; J7040; J7042; J7050; J7120; J7121; P9016; G0103; G0480

== ENCOUNTER 2019-05-11 21:10 | Inpatient (IN) | payer MEDICARE, MEDICAID ==
[~2019-05-11] VITALS: Ht 172.7 cm; Wt 60.8 kg
[2019-05-11 21:10] VITALS: BP 122/80
[~2019-05-11 21:10] MED LIST changes: +INSULIN GLARGINE UD 100 UNITS/ML SYR SUBCUT SCH
[2019-05-11] MEDS ORDERED: IPRATROPIUM/ALBUTEROL 0.5-3(2.5)MG/3ML NEB HHN PRN (22:30)
[2019-05-11] MEDS ORDERED: LORAZEPAM 1MG TABLET PO PRN (22:30)
[2019-05-11] MEDS ORDERED: SORBITOL 70% SOLN 30ML PO PRN (22:30)
[2019-05-11] MEDS ORDERED: DEXTROSE 50% WATER 50ML SYRINGE IV PRN (22:30)
[2019-05-11] MEDS ORDERED: GUAIFENESIN 200MG/10ML SUGAR FREE UDC PO PRN (22:30)
[2019-05-11] MEDS ORDERED: CLONIDINE 0.1MG TABLET PO PRN (22:30)
[2019-05-11] MEDS ORDERED: ONDANSETRON HCL 4MG/2ML INJ IV PRN (22:30)
[2019-05-11] MEDS ORDERED: DOCUSATE SODIUM 100MG CAPSULE PO PRN (22:30)
[2019-05-11] MEDS ORDERED: MAGNESIUM/ALUMINUM HYDROXIDE/SIMETHICONE 30ML UDC PO PRN (22:30)
[2019-05-11] MEDS ORDERED: BISACODYL 5MG TABLET PO PRN (22:30)
[2019-05-11 22:36] VITALS: BP 122/80
[2019-05-12] MEDS: LORAZEPAM 2MG/ML CPJ IV PRN ×2 (04:03→16:06)
[2019-05-12] MEDS: BLOOD SUGAR DIAGNOSTIC STRIP TEST SCH ×4 (07:04→20:29)
[2019-05-12 07:37] LABS: BASOPHILS % 0.2 % (0.0-2.0); EOSINOPHILS % 0.1 % (0.0-5.0); HEMATOCRIT. 24.1 % (42.0-52.0); HEMOGLOBIN. 7.8 g/dL (14.0-18.0); LYMPHOCYTES % 12.2 % (20.0-50.0); MEAN CORPUSCULAR HEMOGLOBIN 28.6 pg (28.0-32.0); MEAN CORPUSCULAR VOLUME 88.2 fL (80.0-94.0); MEAN PLATELET VOLUME 7.1 fl (7.4-10.4); MONOCYTES % 8.1 % (2.0-8.0); NEUTROPHILS % 79.4 % (40.0-76.0); PLATELET 291 x1000/uL (130-400); RED BLOOD CELL COUNT 2.74 mill/uL (4.7-6.1); RED CELL DISTRIBUTION WIDTH 20.5 % (11.6-14.6)
[2019-05-12 08:00] VITALS: BP 111/75
[2019-05-12 08:23] LABS: CHLORIDE 102 mEq/L (98-107)
[2019-05-12] MEDS ORDERED: ERGOCALCIFEROL 50000UNITS CAPSULE PO SCH (09:00)
[2019-05-12] MEDS: INSULIN LISPRO 100 UNITS/ML SUBCUT SCH ×4 (09:00→20:41)
[2019-05-12] MEDS: AMLODIPINE 5MG TABLET PO SCH (09:00)
[2019-05-12] MEDS: FOLIC ACID 1MG TABLET PO SCH (09:08)
[2019-05-12] MEDS: LEVETIRACETAM 500MG/5ML CUP PO SCH ×2 (09:08→20:28)
[2019-05-12] MEDS: POLYETHYLENE GLYCOL 3350 (17GM) 1 DOSE PACK PO SCH (09:08)
[2019-05-12] MEDS: FAMOTIDINE 20MG TABLET PO SCH ×2 (09:08→20:28)
[2019-05-12] MEDS: RISPERIDONE 1MG TABLET PO SCH (09:08)
[2019-05-12] MEDS: SULFAMETHOXAZOLE/TRIMETHOPRIM 400/80MG TAB PO SCH (09:08)
[2019-05-12] MEDS: BICALUTAMIDE 50 MG TABLET PO SCH (09:09)
[2019-05-12] MEDS: INSULIN GLARGINE UD 100 UNITS/ML SYR SUBCUT SCH (11:05)
[2019-05-12 20:00] VITALS: BP 132/69
[2019-05-12] MEDS: SENNOSIDES 8.6MG TABLET PO PRN (22:00)
[2019-05-13] MEDS: BLOOD SUGAR DIAGNOSTIC STRIP TEST SCH ×4 (06:01→21:53)
[2019-05-13] MEDS: INSULIN LISPRO 100 UNITS/ML SUBCUT SCH ×4 (06:09→21:00)
[2019-05-13 08:00] VITALS: BP 106/68
[2019-05-13] MEDS: AMLODIPINE 5MG TABLET PO SCH (09:00)
[2019-05-13] MEDS: SULFAMETHOXAZOLE/TRIMETHOPRIM 400/80MG TAB PO SCH (09:06)
[2019-05-13] MEDS: RISPERIDONE 1MG TABLET PO SCH (09:06)
[2019-05-13] MEDS: FAMOTIDINE 20MG TABLET PO SCH ×2 (09:06→21:56)
[2019-05-13] MEDS: BICALUTAMIDE 50 MG TABLET PO SCH (09:06)
[2019-05-13] MEDS: POLYETHYLENE GLYCOL 3350 (17GM) 1 DOSE PACK PO SCH (09:06)
[2019-05-13] MEDS: LEVETIRACETAM 500MG/5ML CUP PO SCH ×2 (09:06→21:56)
[2019-05-13] MEDS: FOLIC ACID 1MG TABLET PO SCH (09:06)
[2019-05-13] MEDS: INSULIN GLARGINE UD 100 UNITS/ML SYR SUBCUT SCH (09:50)
[2019-05-13] MEDS ORDERED: NA PHOS,M-B/NA PHOS,DI-BA ENEMA 118ML PR PRN (19:00)
[2019-05-13 20:00] VITALS: BP 102/64
[2019-05-14] MEDS: BLOOD SUGAR DIAGNOSTIC STRIP TEST SCH ×4 (06:30→21:42)
[2019-05-14 07:39] LABS: BASOPHILS % 0.2 % (0.0-2.0); EOSINOPHILS % 0.1 % (0.0-5.0); HEMATOCRIT. 24.9 % (42.0-52.0); LYMPHOCYTES % 9.6 % (20.0-50.0); MEAN CORPUSCULAR HEMOGLOBIN 28.1 pg (28.0-32.0); MEAN CORPUSCULAR VOLUME 88.1 fL (80.0-94.0); MEAN PLATELET VOLUME 7.3 fl (7.4-10.4); MONOCYTES % 10.4 % (2.0-8.0); NEUTROPHILS % 79.7 % (40.0-76.0); PLATELET 275 x1000/uL (130-400); RED BLOOD CELL COUNT 2.83 mill/uL (4.7-6.1); RED CELL DISTRIBUTION WIDTH 19.9 % (11.6-14.6)
[2019-05-14 08:00] VITALS: BP 114/72
[2019-05-14 08:16] LABS: CHLORIDE 103 mEq/L (98-107)
[2019-05-14 08:19] LABS: VITAMIN B12 SERUM 895 pg/mL (211-911)
[2019-05-14 08:26] LABS: PHOSPHORUS 3.3 mg/dL (2.5-4.9)
[2019-05-14 08:27] LABS: LDL CHOLESTEROL 105 mg/dL (5-100); TOTAL IRON BINDING CAPACITY 167 ug/dL (250-450)
[2019-05-14] MEDS: BICALUTAMIDE 50 MG TABLET PO SCH (08:28)
[2019-05-14] MEDS: FAMOTIDINE 20MG TABLET PO SCH ×2 (08:28→21:44)
[2019-05-14] MEDS: FOLIC ACID 1MG TABLET PO SCH (08:28)
[2019-05-14] MEDS: AMLODIPINE 5MG TABLET PO SCH (08:29)
[2019-05-14] MEDS: INSULIN LISPRO 100 UNITS/ML SUBCUT SCH ×4 (08:29→21:00)
[2019-05-14] MEDS: RISPERIDONE 1MG TABLET PO SCH (08:29)
[2019-05-14] MEDS: LEVETIRACETAM 500MG/5ML CUP PO SCH ×2 (08:29→21:44)
[2019-05-14] MEDS: POLYETHYLENE GLYCOL 3350 (17GM) 1 DOSE PACK PO SCH (08:29)
[2019-05-14] MEDS: SULFAMETHOXAZOLE/TRIMETHOPRIM 400/80MG TAB PO SCH (08:29)
[2019-05-14 08:30] LABS: HDL CHOLESTEROL 52 mg/dL (40-59)
[2019-05-14 08:38] LABS: FOLIC ACID (FOLATE) SERUM > 20.00 ng/mL (>5.38)
[2019-05-14 10:45] LABS: FERRITIN 1558 ng/mL (22-322)
[2019-05-14] MEDS: INSULIN GLARGINE UD 100 UNITS/ML SYR SUBCUT SCH (11:34)
[2019-05-15] MEDS: ACETAMINOPHEN 325MG TABLET PO PRN (05:26)
[2019-05-15] MEDS: BLOOD SUGAR DIAGNOSTIC STRIP TEST SCH ×4 (06:28→21:23)
[2019-05-15 08:08] VITALS: BP 103/71
[2019-05-15 08:44] LABS: CLARITY URINE CLEAR (CLEAR); COLOR URINE DARK YELLOW (YELLOW); KETONES URINE TRACE (NEGATIVE); LEUKOCYTE ESTERASE URINE NEGATIVE (NEGATIVE); NITRITE URINE NEGATIVE (NEGATIVE); OCCULT BLOOD URINE NEGATIVE (NEGATIVE); PH URINE 5.5 (4.5-8.0); PROTEIN URINE NEGATIVE (NEGATIVE); SPECIFIC GRAVITY URINE 1.022 (1.005-1.030)
[2019-05-15] MEDS: INSULIN LISPRO 100 UNITS/ML SUBCUT SCH ×4 (09:00→21:00)
[2019-05-15] MEDS: AMLODIPINE 5MG TABLET PO SCH (09:00)
[2019-05-15] MEDS: POLYETHYLENE GLYCOL 3350 (17GM) 1 DOSE PACK PO SCH (09:00)
[2019-05-15] MEDS: INSULIN GLARGINE UD 100 UNITS/ML SYR SUBCUT SCH (10:19)
[2019-05-15] MEDS: FAMOTIDINE 20MG TABLET PO SCH ×2 (10:30→21:22)
[2019-05-15] MEDS: RISPERIDONE 1MG TABLET PO SCH (10:30)
[2019-05-15] MEDS: BICALUTAMIDE 50 MG TABLET PO SCH (10:30)
[2019-05-15] MEDS: SULFAMETHOXAZOLE/TRIMETHOPRIM 400/80MG TAB PO SCH (10:30)
[2019-05-15] MEDS: LEVETIRACETAM 500MG/5ML CUP PO SCH ×2 (10:30→21:23)
[2019-05-15] MEDS: FOLIC ACID 1MG TABLET PO SCH (10:30)
[2019-05-15] MEDS: LORAZEPAM 0.5MG TABLET PO PRN ×2 (11:43→21:23)
[2019-05-15 20:00] VITALS: BP 113/73
[2019-05-15] MEDS: SENNOSIDES 8.6MG TABLET PO PRN (21:23)
[2019-05-16] MEDS: ACETAMINOPHEN 325MG TABLET PO PRN (05:13)
[2019-05-16 07:16] LABS: BASOPHILS % 0.2 % (0.0-2.0); EOSINOPHILS % 0.2 % (0.0-5.0); HEMATOCRIT. 25.4 % (42.0-52.0); HEMOGLOBIN. 8.4 g/dL (14.0-18.0); LYMPHOCYTES % 17.2 % (20.0-50.0); MEAN CORPUSCULAR HEMOGLOBIN 29.1 pg (28.0-32.0); MEAN CORPUSCULAR VOLUME 88.4 fL (80.0-94.0); MEAN PLATELET VOLUME 7.2 fl (7.4-10.4); MONOCYTES % 10.1 % (2.0-8.0); NEUTROPHILS % 72.3 % (40.0-76.0); PLATELET 262 x1000/uL (130-400); RED BLOOD CELL COUNT 2.87 mill/uL (4.7-6.1); RED CELL DISTRIBUTION WIDTH 20.1 % (11.6-14.6)
[2019-05-16 07:24] LABS: CHLORIDE 104 mEq/L (98-107)
[2019-05-16] MEDS: BLOOD SUGAR DIAGNOSTIC STRIP TEST SCH ×2 (07:25→11:15)
[2019-05-16 08:07] VITALS: BP 89/60
[2019-05-16] MEDS: POLYETHYLENE GLYCOL 3350 (17GM) 1 DOSE PACK PO SCH ×2 (09:00→09:02)
[2019-05-16] MEDS: INSULIN LISPRO 100 UNITS/ML SUBCUT SCH ×2 (09:00→13:00)
[2019-05-16] MEDS: AMLODIPINE 5MG TABLET PO SCH (09:00)
[2019-05-16] MEDS: RISPERIDONE 1MG TABLET PO SCH (09:02)
[2019-05-16] MEDS: SULFAMETHOXAZOLE/TRIMETHOPRIM 400/80MG TAB PO SCH (09:02)
[2019-05-16] MEDS: FAMOTIDINE 20MG TABLET PO SCH (09:02)
[2019-05-16] MEDS: FOLIC ACID 1MG TABLET PO SCH (09:02)
[2019-05-16] MEDS: LEVETIRACETAM 500MG/5ML CUP PO SCH (09:02)
[2019-05-16] MEDS: BICALUTAMIDE 50 MG TABLET PO SCH (09:03)
[2019-05-16] MEDS: INSULIN GLARGINE UD 100 UNITS/ML SYR SUBCUT SCH (10:00)
[2019-05-16] MEDS ORDERED: LORAZEPAM 1MG TABLET PO PRN (11:00)
[2019-05-16 13:33] VITALS: BP 101/65
[2019-05-17 17:06] LABS: 25-HYDROXY VITAMIN D3 12 ng/mL (.)
== END 2019-05-16 13:55 | DRG 64 ==
PROVIDERS: ADMIT Physical Medicine & Rehabilitation Spinal Cord Injury Medicine; ATTEND Internal Medicine
DX: I62.01 Nontraumatic acute subdural hemorrhage (principal); E43 Unspecified severe protein-calorie malnutrition; B20 Human immunodeficiency virus [HIV] disease; C79.51 Secondary malignant neoplasm of bone; E87.1 Hypo-osmolality and hyponatremia; G93.40 Encephalopathy, unspecified; G81.94 Hemiplegia, unspecified affecting left nondominant side; R47.01 Aphasia; E55.9 Vitamin D deficiency, unspecified; E53.8 Deficiency of other specified B group vitamins; R94.6 Abnormal results of thyroid function studies; C61 Malignant neoplasm of prostate; E11.65 Type 2 diabetes mellitus with hyperglycemia; E11.22 Type 2 diabetes mellitus with diabetic chronic kidney disease; E11.319 Type 2 diabetes mellitus with unspecified diabetic retinopathy without macular edema; B02.9 Zoster without complications; N18.9 Chronic kidney disease, unspecified; R53.81 Other malaise; I12.9 Hypertensive chronic kidney disease with stage 1 through stage 4 chronic kidney disease, or unspecified chronic kidney disease; M10.9 Gout, unspecified; D64.9 Anemia, unspecified; R29.810 Facial weakness; R13.10 Dysphagia, unspecified; R47.1 Dysarthria and anarthria; R74.0 Nonspecific elevation of levels of transaminase and lactic acid dehydrogenase [LDH]; J44.9 Chronic obstructive pulmonary disease, unspecified; K59.09 Other constipation; Z78.1 Physical restraint status; Z79.899 Other long term (current) drug therapy; Z79.4 Long term (current) use of insulin; Z68.20 Body mass index [BMI] 20.0-20.9, adult
CPT/HCPCS: 36415; 80048; 80061; 81003; 82140; 82306; 82607; 82728; 82746; 82962; 83540; 83550; 83735; 84100; 84134; 84443; 92523; 92610; 93970; 97116; 97162; 97167; 97530; 97535; J1815; J2060